=== PATIENT | female | born 1980 | race Caucasian/White ===

== ENCOUNTER 2017-01-23 10:12 | Day surgery (SDC) | payer OTHER, BC ==
[~2017-01-23] VITALS: Ht 157.5 cm; Wt 94.8 kg
[2017-01-23] MEDS ORDERED: PROPOFOL 200MG/ 20ML VIAL (DIPRIVAN) IV ONE (11:51)
[2017-01-23] MEDS ORDERED: fentaNYL CITRATE/PF 100 MCG/2 ML AMP IVP ONE (11:51)
[2017-01-23] MEDS ORDERED: KETOROLAC TROMETHAMINE 30 MG VIAL IVP ONE (11:51)
[2017-01-23] MEDS ORDERED: SEVOFLURANE 15 MIN GAS INH ONE (11:51)
[2017-01-23] MEDS ORDERED: DEXAMETHASONE SOD PHOSPHATE 4 MG/ML VIAL IVP ONE (11:51)
[2017-01-23] MEDS ORDERED: MIDAZOLAM HCL 5 MG/5 ML VIAL IVP ONE (11:51)
[2017-01-23] MEDS ORDERED: LR 1,000 ML IV ONE (12:42)
[2017-01-23] MEDS ORDERED: ePHEDrine sulfate 50 MG/ML VIAL IVP PRN (12:45)
[2017-01-23] MEDS ORDERED: NALBUPHINE HCL 10 MG/ML AMP IVP PRN (12:45)
[2017-01-23] MEDS ORDERED: fentaNYL CITRATE/PF 100 MCG/2 ML AMP IVP PRN (12:45)
[2017-01-23] MEDS ORDERED: DIPHENHYDRAMINE INJ 50 MG/ML VIAL IVP PRN (12:45)
[2017-01-23] MEDS ORDERED: NALOXONE HCL 0.4 MG/ML AMP (NARCAN) IVP PRN (12:45)
[2017-01-23] MEDS ORDERED: ONDANSETRON HCL 4 MG/2 ML VIAL IVP PRN ×3 (12:45→13:00)
[2017-01-23] MEDS ORDERED: PROMETHAZINE HCL 25 MG/ML AMP IM PRN ×2 (13:00)
[2017-01-23] MEDS ORDERED: OXYCODONE/ACETAMINOPHEN 5-325 TABLET PO PRN ×2 (13:00)
[2017-01-23] MEDS ORDERED: IBUPROFEN 600 MG TABLET PO PRN (13:00)
[2017-01-23] MEDS ORDERED: fentaNYL CITRATE/PF 100 MCG/2 ML AMP ONE (13:06)
[2017-01-23] MEDS ORDERED: OXYCODONE/ACETAMINOPHEN 5-325 TABLET ONE (14:07)
[2017-01-23 14:21] VITALS: BP_SYST 111
== END 2017-01-23 14:50 | disposition home or self-care (01) ==
LOC: SDS 10:12 → SMU 10:13 → SDS 14:50
PROVIDERS: ATTEND Obstetrics & Gynecology
DX: D26.9 Other benign neoplasm of uterus, unspecified (principal); Z68.38 Body mass index [BMI] 38.0-38.9, adult; Z90.49 Acquired absence of other specified parts of digestive tract; E66.01 Morbid (severe) obesity due to excess calories; D64.9 Anemia, unspecified
CPT/HCPCS: 36415; 58558; 86886; 86900; 86901; 88305; J1100; J1885; J2250; J2704; J3010